=== PATIENT | male | born 1960 | race Caucasian/White ===

== ENCOUNTER → 2017-03-13 | Outpatient (CLI) | payer BC ==
[~2017-03-13] MED LIST: BARIUM SULF 2% 450 ML BTL (BERRY SMOOTHIE) PO ONE; IOHEXOL 300MG/ML 150 ML BTL ONE; SOD CHLORIDE 0.9% 100 ML ONE
[2017-03-13 12:59] LABS: BASOPHILS % 0.4 % (0.0-2.0); EOSINOPHILS # 0.1 10^3/ul (0.0-0.5); EOSINOPHILS % 1.2 % (0.0-7.0); HEMATOCRIT 48.8 % (42.0-52.0); HEMOGLOBIN 16.9 g/dl (14.0-18.0); LYMPHOCYTES % 29.7 % (15.0-51.0); MEAN CORPUSCULAR HEMOGLOBIN 32.3 pg (29.0-33.0); MEAN CORPUSCULAR HGB CONC 34.6 g/dl (32.0-37.0); MEAN CORPUSCULAR VOLUME 93.3 fl (82.0-101.0); MEAN PLATELET VOLUME 9.2 fl (7.4-10.4); MONOCYTE # 0.5 10^3/ul (0.3-0.9); MONOCYTES % 7.8 % (0.0-11.0); NEUTROPHIL # 4.1 10^3/ul (1.6-7.5); NEUTROPHILS % 60.6 % (39.0-77.0); PLATELET COUNT 170 10^3/UL (140-415); RED BLOOD COUNT 5.23 10^6/ul (4.70-6.10); RED CELL DISTRIBUTION WIDTH 12.3 % (11.5-14.5); WHITE BLOOD COUNT 6.8 10^3/ul (4.8-10.8)
[2017-03-13 13:26] LABS: CALCIUM 9.9 mg/dl (8.4-10.2); CREATININE 1.14 mg/dl (0.61-1.24)
--- NOTE | 2017-03-13 16:33 | RADRPT ---
PROCEDURE: CT abdomen with intravenous and oral contrast and with 3-D reconstructions CLINICAL INDICATION: LIVER MASS TECHNIQUE: CT scan of the abdomen with intravenous and oral contrast was performed on a multislice CT scanner. 3-D sagittal and coronal reformatted images were obtained from the axial source images. DLP 382.63 mGycm CTDIvol 10.10 mGy One or more of the following dose reduction techniques were used: - Automated exposure control. - Adjustment of the mA and/or kV according to patient size. - Use of iterative reconstruction technique. COMPARISON: None. FINDINGS: The visualized lung bases are unremarkable. The liver is homogenous in attenuation. There are numerous scattered simple - appearing cystic lesio ns throughout the liver measuring up to 2.5 cm in the right lobe on series 3, image 41 and 2.0 cm in the left lobe on image 30. There are also numerous scattered sub centimeter hypodensities througho ut the liver which are too small to characterize, but are statistically cysts. There is no intrahepa tic or extrahepatic biliary ductal dilatation. The gallbladder is within normal limits. The spleen, pancreas, and adrenal glands are within normal limits. The kidneys are symmetric and without focal lesions. There are no renal calculi. There is no obstruc tive uropathy. There are no dilated or thickened loops of bowel. The aorta is within normal limits. There are no enlarged mesenteric, periaortic, or retroperitoneal lymph nodes. The bladder is within normal limits. There is no free air. There is no free fluid. There are no enlarged intrapelvic or inguinal lymph nodes. Osseous and soft tissue structures are unremarkable. IMPRESSION: Numerous simple - appearing cystic lesions are identified throughout the liver measuring up to 2.5 c m which are likely cysts. No specific follow-up is recommended although if further confirmation is desired, an MRI of the abdomen can be obtained to evaluate the lesions on a T2 sequence. These findings were discussed with Emmanuel Mcclain over the phone on 03/13/2017 at 4:32 PM . RPTAT: EE Physician Sandra Date Time Electronically viewed and signed by Physician Sandra on 03/13/2017 16:33 RA/
== END | disposition home or self-care (01) ==
LOC: LAB 12:19
PROVIDERS: ATTEND Surgery Surgical Oncology
DX: K76.9 Liver disease, unspecified (principal)
CPT/HCPCS: 74160; 80048; 85025; 86301; Q9967